=== PATIENT | male | born 2000 | race Caucasian/White ===

== ENCOUNTER 2023-10-02 05:46 | Day surgery (SDC) | payer OTHER ==
[2023-10-01 10:49] VITALS: BMI 32.1
[2023-10-02] MEDS ORDERED: Mupirocin 2% Ointment 22 GM Tube ONE (06:20)
[2023-10-02] MEDS ORDERED: Propofol 1,000 MG/100 ML VIAL IV ONE (06:20)
[2023-10-02] MEDS ORDERED: Lidocaine 1% (PF) 30 ML VIAL ONE (06:20)
[2023-10-02] MEDS ORDERED: Sevoflurane 250 ML INH ANEST BOTTLE ONE (06:21)
[2023-10-02] MEDS ORDERED: Dexamethasone 20 MG/5 ML VIAL ONE (06:23)
[2023-10-02] MEDS ORDERED: Dexmedetomidine 200 MCG/2 ML VIAL ONE (06:23)
[2023-10-02] MEDS ORDERED: Midazolam HCl 2 mg/2 ml Vial ONE ×2 (06:23→06:55)
[2023-10-02] MEDS ORDERED: PROPOFOL 20 ML ONE (06:23)
[2023-10-02] MEDS ORDERED: fentaNYL 50 mcg/mL 1 mL Vial ONE ×2 (06:23→08:40)
[2023-10-02] MEDS ORDERED: SUGAMMADEX SODIUM 200 MG/2 ML VIAL ONE (06:23)
[2023-10-02] MEDS ORDERED: Rocuronium Bromide 10 MG/ML (10ML VIAL) ONE (06:23)
[2023-10-02] MEDS ORDERED: Ondansetron PF 4 MG/2 ML Vial ONE (06:23)
[2023-10-02] MEDS ORDERED: EPINEPHrine 1 MG/ML VIAL ONE (06:34)
[2023-10-02] MEDS ORDERED: Scopolamine 1 mg/72 hour Patch ONE (06:45)
[2023-10-02] MEDS ORDERED: Famotidine/PF 20 mg/2ml Vial ONE (06:47)
[2023-10-02] MEDS ORDERED: Oxymetazoline HCl 0.05% ( 15 ML ) ONE (07:26)
[2023-10-02] MEDS ORDERED: Ondansetron ODT 4 MG TAB ONE (09:34)
== END 2023-10-02 10:05 | disposition home or self-care (01) ==
LOC: CSHSDC 05:46
PROVIDERS: ATTEND Otolaryngology Otolaryngic Allergy
PROC: 09TL8ZZ Resection of Nasal Turbinate, Via Natural or Artificial Opening Endoscopic (ICD-10-PCS; principal; 2023-10-02)
PROC: 09BM8ZZ Excision of Nasal Septum, Via Natural or Artificial Opening Endoscopic (ICD-10-PCS; principal; 2023-10-02)
DX: J34.2 Deviated nasal septum (principal); J34.3 Hypertrophy of nasal turbinates; J30.9 Allergic rhinitis, unspecified; J34.89 Other specified disorders of nose and nasal sinuses; Z79.899 Other long term (current) drug therapy
CPT/HCPCS: J0171; J1100; J2001; J2250; J2405; J2704; J3010; J3490; Q0162